=== PATIENT | male | born 1945 | race Caucasian/White ===

== ENCOUNTER 2018-03-18 05:29 | Inpatient (IN) ==
[2018-03-18] MEDS ORDERED: ceFAZolin 2 GM Premix Inj 2 GM/50 ML PIGGYBACK IV.SIG ONE (05:36)
[2018-03-18] MEDS ORDERED: Diphtheria/Tetanus/Pertussis Vaccine Inj 0.5 ML Syringe IM ONE (05:36)
[2018-03-18 05:56] LABS: Baso % (Auto) 0.2 % (0.0-2.0); Eos # (Auto) 0.1 th/mm3 (0.0-0.4); Eos % (Auto) 0.7 % (0.0-4.0); Hemoglobin 14.5 gm/dL (13.0-17.0); Lymph # (Auto) 0.9 th/mm3 (1.0-4.8); Lymph % (Auto) 11.4 % (9.0-44.0); Mean Corpuscular HGB Conc 32.2 % (32.0-36.0); Mean Corpuscular Hemoglobin 29.6 pg (27.0-34.0); Mean Corpuscular Volume 91.9 fL (80.0-100.0); Mean Platelet Volume 8.5 fL (7.0-11.0); Mono # (Auto) 0.6 th/mm3 (0.0-0.9); Mono % (Auto) 7.1 % (0.0-8.0); Neut # (Auto) 6.4 th/mm3 (1.8-7.7); Neut % (Auto) 80.6 % (16.0-70.0); Platelet Count 110 th/mm3 (150-450); Red Blood Count 4.89 mil/mm3 (4.50-5.90); Red Cell Distribution Width 14.2 % (11.6-17.2); White Blood Count 7.9 th/mm3 (4.0-11.0)
[2018-03-18 06:08] LABS: Activated Partial Thrombo Time 24.7 sec (24.3-30.1); INR 1.1 Ratio; Prothrombin Time 10.7 sec (9.8-11.6)
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
[2018-03-18] MEDS ORDERED: Naloxone Inj 0.4 MG/ML Vial IV.PUSH ONE (06:25)
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
[2018-03-18] MEDS ORDERED: Etomidate Inj 40 MG/20 ML Vial IV.PUSH ONE (06:44)
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
[2018-03-18] MEDS ORDERED: Propofol Inj 500 MG/50 ML Vial ONE (07:01)
[2018-03-18] MEDS ORDERED: Succinylcholine Inj 100 MG/5 ML Syringe IV.PUSH ONE (07:04)
[2018-03-18] MEDS ORDERED: Etomidate Inj 20 MG/10 ML Ampul IV.PUSH ONE ×2 (07:04→07:06)
[2018-03-18] MEDS ORDERED: Propofol 1000 mg/100 ml Inj 1,000 MG/100 ML BOTTLE IV.CONT PRN (07:05)
[2018-03-18 07:08] LABS: ABG Base Excess -2.2 mmol/L (-2-2); ABG PCO2 96 mmHg (38-42); ABG PO2 75 mmHg (61-120)
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
[2018-03-18] MEDS ORDERED: Morphine Sulfate Inj 2 MG/ML Vial IV.PUSH PRN (07:42)
[2018-03-18] MEDS ORDERED: Bisacodyl 10 MG Supp RECTAL PRN (07:42)
[2018-03-18] MEDS: Sod Chloride 0.9% Inj 1,000 ML IV.CONT SCH ×3 (08:51→21:39)
[2018-03-18] MEDS: Famotidine PF Inj 20 MG/2 ML Vial IV.PUSH SCH ×2 (09:00→21:37)
[2018-03-18] MEDS ORDERED: Acetaminophen 325 MG Tablet PO PRN (09:00)
[2018-03-18] MEDS: Enoxaparin Inj 40 MG/0.4 ML Syringe SQ SCH (09:01)
[2018-03-18] MEDS: Senna/Docusate Sodium 8.6/50 MG Tablet PO SCH ×2 (09:07→21:38)
[2018-03-18 10:38] LABS: ABG Base Excess -3.7 mmol/L (-2-2); ABG PCO2 48 mmHg (38-42); ABG PO2 147 mmHg (61-120)
[2018-03-18] MEDS: Propofol 1000 mg/100 ml Inj 1,000 MG/100 ML BOTTLE IV.CONT PRN (19:21)
[2018-03-19] MEDS ORDERED: Chlorhexidine Gluconate 2% 1 Pack (2 Cloths) TOPICAL PRN ×2 (04:00)
[2018-03-19] MEDS ORDERED: Chlorhexidine Gluconate 2% 1 Pack (2 Cloths) TOPICAL SCH (04:00)
[2018-03-19] MEDS: Chlorhexidine Gluconate 2% 1 Pack (2 Cloths) TOPICAL SCH (04:38)
[2018-03-19 05:03] LABS: Baso % (Auto) 0.1 % (0.0-2.0); Eos # (Auto) 0.1 th/mm3 (0.0-0.4); Eos % (Auto) 1.3 % (0.0-4.0); Hematocrit 41.4 % (39.0-51.0); Hemoglobin 13.3 gm/dL (13.0-17.0); Lymph # (Auto) 0.8 th/mm3 (1.0-4.8); Lymph % (Auto) 13.5 % (9.0-44.0); Mean Corpuscular HGB Conc 32.1 % (32.0-36.0); Mean Corpuscular Hemoglobin 29.3 pg (27.0-34.0); Mean Corpuscular Volume 91.3 fL (80.0-100.0); Mean Platelet Volume 8.5 fL (7.0-11.0); Mono # (Auto) 0.5 th/mm3 (0.0-0.9); Mono % (Auto) 8.3 % (0.0-8.0); Neut # (Auto) 4.5 th/mm3 (1.8-7.7); Neut % (Auto) 76.8 % (16.0-70.0); Platelet Count 94 th/mm3 (150-450); Red Blood Count 4.54 mil/mm3 (4.50-5.90); Red Cell Distribution Width 14.3 % (11.6-17.2); White Blood Count 5.9 th/mm3 (4.0-11.0)
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
[2018-03-19 05:22] LABS: Albumin 2.7 g/dL (3.4-5.0); Anion Gap 8 meq/L (5-15); Aspartate Aminotransferase 32 U/L (15-37); Blood Urea Nitrogen 21 mg/dL (7-18); Calcium 8.2 mg/dL (8.5-10.1); Carbon Dioxide 25.1 meq/L (21.0-32.0); Chloride 112 meq/L (98-107); Glomerular Filtration Rate 65 mL/min (>89); Glucose,Random 100 mg/dL (74-106); Potassium 4.9 meq/L (3.5-5.1); Sodium 145 meq/L (136-145)
[2018-03-19 05:23] LABS: Alanine Aminotransferase 23 U/L (12-78)
[2018-03-19 05:25] LABS: Alkaline Phosphatase 78 U/L (45-117); Total Protein 6.1 g/dL (6.4-8.2)
[2018-03-19 07:01] LABS: Platelet Morphology Normal (Normal)
[2018-03-19] MEDS: Enoxaparin Inj 40 MG/0.4 ML Syringe SQ SCH (09:00)
[2018-03-19] MEDS: Famotidine PF Inj 20 MG/2 ML Vial IV.PUSH SCH ×2 (09:00→20:33)
[2018-03-19] MEDS: Sod Chloride 0.9% Inj 1,000 ML IV.CONT SCH ×2 (09:55→21:53)
[2018-03-19] MEDS: Senna/Docusate Sodium 8.6/50 MG Tablet PO SCH ×2 (11:55→20:31)
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
[2018-03-20 05:44] LABS: Baso % (Auto) 0.1 % (0.0-2.0); Eos % (Auto) 0.4 % (0.0-4.0); Hematocrit 41.2 % (39.0-51.0); Hemoglobin 13.5 gm/dL (13.0-17.0); Lymph # (Auto) 0.5 th/mm3 (1.0-4.8); Lymph % (Auto) 6.9 % (9.0-44.0); Mean Corpuscular HGB Conc 32.9 % (32.0-36.0); Mean Corpuscular Hemoglobin 29.6 pg (27.0-34.0); Mean Corpuscular Volume 90.2 fL (80.0-100.0); Mean Platelet Volume 8.3 fL (7.0-11.0); Mono # (Auto) 0.5 th/mm3 (0.0-0.9); Neut # (Auto) 5.7 th/mm3 (1.8-7.7); Neut % (Auto) 85.6 % (16.0-70.0); Platelet Count 102 th/mm3 (150-450); Red Blood Count 4.57 mil/mm3 (4.50-5.90); Red Cell Distribution Width 13.9 % (11.6-17.2); White Blood Count 6.7 th/mm3 (4.0-11.0)
[2018-03-20 05:58] LABS: INR 1.1 Ratio; Prothrombin Time 10.8 sec (9.8-11.6)
[2018-03-20 06:08] LABS: Albumin 2.7 g/dL (3.4-5.0); Anion Gap 6 meq/L (5-15); Aspartate Aminotransferase 29 U/L (15-37); Blood Urea Nitrogen 14 mg/dL (7-18); Calcium 8.1 mg/dL (8.5-10.1); Carbon Dioxide 25.9 meq/L (21.0-32.0); Chloride 109 meq/L (98-107); Glomerular Filtration Rate Greater Than 89 mL/min (>89); Glucose,Random 137 mg/dL (74-106); Potassium 4.6 meq/L (3.5-5.1); Sodium 141 meq/L (136-145)
[2018-03-20 06:09] LABS: Alanine Aminotransferase 25 U/L (12-78); Phosphorus 2.7 mg/dL (2.5-4.9)
[2018-03-20 06:18] LABS: Alkaline Phosphatase 78 U/L (45-117); Free T4 (Free Thyroxine) 1.02 ng/dL (0.76-1.46); Thyroid Stimulating Hormone 0.713 uIU/mL (0.358-3.740); Total Protein 6.6 g/dL (6.4-8.2)
[2018-03-20] MEDS: Chlorhexidine Gluconate 2% 1 Pack (2 Cloths) TOPICAL SCH (07:00)
[2018-03-20] MEDS: Sod Chloride 0.9% Inj 1,000 ML IV.CONT SCH ×3 (09:01→20:42)
[2018-03-20] MEDS: Enoxaparin Inj 40 MG/0.4 ML Syringe SQ SCH (09:02)
[2018-03-20] MEDS: Senna/Docusate Sodium 8.6/50 MG Tablet PO SCH ×2 (09:02→21:22)
[2018-03-20] MEDS: Famotidine PF Inj 20 MG/2 ML Vial IV.PUSH SCH ×2 (09:02→21:22)
[2018-03-20] MEDS ORDERED: Dextrose 50% in Water 50 ML Vial IV.PUSH PRN (10:10)
[2018-03-20] MEDS ORDERED: MethylPREDNISolone Sod Succinate Inj 125 MG/2 ML Vial IV.PUSH ONE (10:12)
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
[2018-03-20] MEDS ORDERED: Midazolam Inj 5 MG/ML 1 ML Vial ONE (10:58)
[2018-03-20] MEDS ORDERED: Etomidate Inj 40 MG/20 ML Vial IV.PUSH ONE (10:58)
[2018-03-20 11:27] LABS: ABG Base Excess 0.5 mmol/L (-2-2); ABG PCO2 82 mmHg (38-42); ABG PO2 66 mmHg (61-120)
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
[2018-03-20] MEDS: Propofol 1000 mg/100 ml Inj 1,000 MG/100 ML BOTTLE IV.CONT PRN ×2 (11:30→20:44)
[2018-03-20] MEDS ORDERED: Etomidate Inj 20 MG/10 ML Ampul IV.PUSH ONE (11:45)
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
--- NOTE | 2018-03-20 12:21 | XR ---
EXAM DATE: 03/20/2018 12:00 AM EDT AGE/SEX: 72 years / Male INDICATIONS: Evaluate for hypoxemia. CLINICAL DATA: This is the patient's subsequent encounter. Patient reports that signs and symptoms h ave been present for 4 - 6 days and indicates a pain score of Nonresponsive. MEDICAL/SURGICAL HISTORY: Non-responsive. Non-responsive. COMPARISON: [facility], CHEST 1V SINGLE AP, 03/18/2018. . FINDINGS: A single AP view of the chest demonstrates an endotracheal tube with the tip 4 cm from the jj. Na sogastric tube courses off the inferior margin of the film. The patient is obliqued towards the left. Bibasilar pulmonary consolidations more pronounced from the prior exam. No discernible effusions. He art is at the upper limits of normal in terms of size. CONCLUSION: Worsening bibasilar consolidations. Electronically signed by: Ajay Loya MD 03/20/2018 12:19 PM EDT
[2018-03-20 12:24] LABS: ABG Base Excess 0.8 mmol/L (-2-2); ABG PCO2 62 mmHg (38-42); ABG PO2 158 mmHg (61-120)
[2018-03-20] MEDS: Insulin NovoLOG Aspart Correctional Sugar Inj SQ SCH ×3 (13:39→21:22)
[2018-03-20] MEDS: Tiotropium Bromide 18 MCG/ACT Inhaler INH SCH (13:44)
[2018-03-20] MEDS: Piperacil/Tazo 3.375 GM Premix 50 ML IV.SIG SCH ×2 (15:18→20:45)
[2018-03-20] MEDS: MethylPREDNISolone Sod Succinate Inj 125 MG/2 ML Vial IV.PUSH SCH ×2 (18:09→22:35)
[2018-03-20] MEDS: guaiFENesin 600 MG ER Tablet PO SCH (21:14)
[2018-03-20] MEDS: Budesonide-Formoterol 160/4.5 MCG 6 GM Inhaler INH SCH (21:15)
[2018-03-21] MEDS: Piperacil/Tazo 3.375 GM Premix 50 ML IV.SIG SCH ×4 (02:10→20:34)
[2018-03-21] MEDS: Insulin NovoLOG Aspart Correctional Sugar Inj SQ SCH ×4 (03:21→17:00)
[2018-03-21] MEDS: Propofol 1000 mg/100 ml Inj 1,000 MG/100 ML BOTTLE IV.CONT PRN ×5 (04:10→22:15)
[2018-03-21] MEDS: Chlorhexidine Gluconate 2% 1 Pack (2 Cloths) TOPICAL SCH (04:36)
[2018-03-21] MEDS: MethylPREDNISolone Sod Succinate Inj 125 MG/2 ML Vial IV.PUSH SCH ×4 (04:42→22:16)
[2018-03-21 07:07] LABS: Baso % (Auto) 0.1 % (0.0-2.0); Hematocrit 41.6 % (39.0-51.0); Hemoglobin 13.7 gm/dL (13.0-17.0); Lymph # (Auto) 0.2 th/mm3 (1.0-4.8); Lymph % (Auto) 4.2 % (9.0-44.0); Mean Corpuscular HGB Conc 32.9 % (32.0-36.0); Mean Corpuscular Hemoglobin 29.6 pg (27.0-34.0); Mean Corpuscular Volume 89.8 fL (80.0-100.0); Mean Platelet Volume 8.6 fL (7.0-11.0); Mono # (Auto) 0.1 th/mm3 (0.0-0.9); Mono % (Auto) 2.4 % (0.0-8.0); Neut # (Auto) 5.1 th/mm3 (1.8-7.7); Neut % (Auto) 93.3 % (16.0-70.0); Platelet Count 114 th/mm3 (150-450); Red Blood Count 4.63 mil/mm3 (4.50-5.90); Red Cell Distribution Width 13.9 % (11.6-17.2); White Blood Count 5.5 th/mm3 (4.0-11.0)
[2018-03-21 07:29] LABS: Alanine Aminotransferase 21 U/L (12-78); Phosphorus 2.2 mg/dL (2.5-4.9)
[2018-03-21 07:30] LABS: Albumin 2.4 g/dL (3.4-5.0); Anion Gap 7 meq/L (5-15); Aspartate Aminotransferase 26 U/L (15-37); Blood Urea Nitrogen 24 mg/dL (7-18); Calcium 8.4 mg/dL (8.5-10.1); Carbon Dioxide 24.9 meq/L (21.0-32.0); Chloride 110 meq/L (98-107); Glomerular Filtration Rate 71 mL/min (>89); Glucose,Random 203 mg/dL (74-106); Magnesium 2.2 mg/dL (1.5-2.5); Sodium 142 meq/L (136-145)
[2018-03-21 07:31] LABS: Alkaline Phosphatase 67 U/L (45-117); Total Protein 6.4 g/dL (6.4-8.2)
[2018-03-21 07:32] LABS: Potassium 4.9 meq/L (3.5-5.1)
[2018-03-21 08:10] LABS: Platelet Morphology Normal (Normal)
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
[2018-03-21] MEDS: guaiFENesin 600 MG ER Tablet PO SCH ×3 (09:21→20:35)
[2018-03-21] MEDS: Enoxaparin Inj 40 MG/0.4 ML Syringe SQ SCH (09:21)
[2018-03-21] MEDS: Senna/Docusate Sodium 8.6/50 MG Tablet PO SCH ×2 (09:22→20:33)
[2018-03-21] MEDS: Sod Chloride 0.9% Inj 1,000 ML IV.CONT SCH ×2 (09:23→20:22)
[2018-03-21] MEDS: Budesonide-Formoterol 160/4.5 MCG 6 GM Inhaler INH SCH ×2 (09:23→20:35)
[2018-03-21] MEDS: Tiotropium Bromide 18 MCG/ACT Inhaler INH SCH (09:23)
[2018-03-21] MEDS: Famotidine PF Inj 20 MG/2 ML Vial IV.PUSH SCH ×2 (09:25→20:33)
[2018-03-21] MEDS ORDERED: Sod Chloride 0.9% Inj 1,000 ML IV.SIG SCH (09:30)
[2018-03-21] MEDS ORDERED: Dextrose 50% in Water 50 ML Vial IV.PUSH PRN (09:33)
[2018-03-21] MEDS: Beneprotein Powder Packet G-TUBE SCH ×2 (12:03→17:00)
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
[2018-03-21 17:52] LABS: Bilirubin,Urine Negative (Negative); Clarity,Urine Clear (Clear); Color,Urine Yellow (Yellw/Straw); Glucose,Urine (UA) Negative (Negative); Leukocyte Esterase,Urine Trace (Negative); Nitrite,Urine Negative (Negative)
[2018-03-22] MEDS: Insulin NovoLOG Aspart Correctional Sugar Inj SQ SCH ×5 (00:34→23:32)
[2018-03-22] MEDS: Piperacil/Tazo 3.375 GM Premix 50 ML IV.SIG SCH ×4 (02:00→20:12)
[2018-03-22] MEDS: Propofol 1000 mg/100 ml Inj 1,000 MG/100 ML BOTTLE IV.CONT PRN ×3 (03:55→18:59)
[2018-03-22 04:18] LABS: Hematocrit 38.8 % (39.0-51.0); Hemoglobin 12.6 gm/dL (13.0-17.0); Mean Corpuscular HGB Conc 32.5 % (32.0-36.0); Mean Corpuscular Hemoglobin 29.2 pg (27.0-34.0); Mean Corpuscular Volume 89.9 fL (80.0-100.0); Mean Platelet Volume 8.2 fL (7.0-11.0); Platelet Count 123 th/mm3 (150-450); Red Blood Count 4.31 mil/mm3 (4.50-5.90); White Blood Count 6.6 th/mm3 (4.0-11.0)
[2018-03-22] MEDS: Chlorhexidine Gluconate 2% 1 Pack (2 Cloths) TOPICAL SCH (04:24)
[2018-03-22] MEDS: MethylPREDNISolone Sod Succinate Inj 125 MG/2 ML Vial IV.PUSH SCH ×4 (04:25→23:32)
--- NOTE | 2018-03-22 04:28 | XR ---
EXAM DATE: 03/22/2018 6:00 AM EDT AGE/SEX: 72 years / Male INDICATIONS: Respiratory disease. CLINICAL DATA: This is the patient's subsequent encounter. Patient reports that signs and symptoms h ave been present for 4 - 6 days and indicates a pain score of Nonresponsive. MEDICAL/SURGICAL HISTORY: Non-responsive. Non-responsive. COMPARISON: [facility], CHEST 1V SINGLE AP, 03/20/2018. . FINDINGS: Endotracheal tube in good position. NG enters stomach. Basilar airspace disease similar to March 20 . No pneumothorax. Small effusions. CONCLUSION: Support apparatus unchanged. Stable basilar airspace disease with small effusions. Electronically signed by: Oniel Schaeffer MD 03/22/2018 4:26 AM EDT
[2018-03-22 04:34] LABS: Albumin 1.6 g/dL (3.4-5.0); Calcium 7.1 mg/dL (8.5-10.1); Carbon Dioxide 27.3 meq/L (21.0-32.0); Total Protein 4.1 g/dL (6.4-8.2)
[2018-03-22 04:35] LABS: Potassium 4.6 meq/L (3.5-5.1)
[2018-03-22] MEDS: Sod Chloride 0.9% Inj 1,000 ML IV.CONT SCH ×2 (05:12→08:04)
[2018-03-22] MEDS: Senna/Docusate Sodium 8.6/50 MG Tablet PO SCH ×2 (08:02→20:13)
[2018-03-22] MEDS: Enoxaparin Inj 40 MG/0.4 ML Syringe SQ SCH (08:05)
[2018-03-22] MEDS: guaiFENesin 600 MG ER Tablet PO SCH (08:06)
[2018-03-22] MEDS: Beneprotein Powder Packet G-TUBE SCH ×3 (08:06→19:00)
[2018-03-22] MEDS: Famotidine PF Inj 20 MG/2 ML Vial IV.PUSH SCH (08:07)
--- NOTE | 2018-03-22 09:49 | P.PNNP ---
Subjective Interval history: On ventilator with sedation. Urinary output has increased overnight. Creatinine stable at 0.90. <Lauren Chanel - Last Filed: 03/22/18 09:46> Physical Exam Vital signs: Vital Signs 03/21/18 11:48 03/21/18 12:00 03/21/18 15:35 Temperature 97.8 F Pulse Rate 87 74 Respiratory Rate 18 18 18 Blood Pressure 135/83 Pulse Oximetry 99 96 97 03/21/18 15:38 03/21/18 16:00 03/21/18 20:00 Temperature 97.8 F 98 F Pulse Rate 58 L 65 64 Respiratory Rate 18 18 18 Blood Pressure 135/70 139/63 Pulse Oximetry 97 98 03/21/18 21:23 03/21/18 22:23 03/22/18 00:00 Temperature 98.2 F Pulse Rate 75 52 L Respiratory Rate 18 18 18 Blood Pressure 115/56 L Pulse Oximetry 97 98 03/22/18 00:20 03/22/18 04:00 03/22/18 04:27 Temperature 98.5 F Pulse Rate 63 72 67 Respiratory Rate 18 21 18 Blood Pressure 115/55 L Pulse Oximetry 98 97 98 03/22/18 07:33 Temperature Pulse Rate 56 L Respiratory Rate 18 Blood Pressure Pulse Oximetry 97 Intake & Output 03/21/18 03/22/18 03/22/18 18:59 06:59 18:59 Intake Total 1550 / 1550 1652 / 1652 200 / 200 Output Total 475 / 475 650 / 650 Balance 1075 / 1075 1002 / 1002 200 / 200 Weight 116.1 kg Intake: IV 1550 / 1550 1300 / 1300 200 / 200 Diprivan 1000 mg/100 ml Inj 1, 300 / 300 200 / 200 000 mg In 100 ml @ 5 MCG/KG/MIN 3.402 mls/hr IV.CONT TITRATE PRN Rx#:[id number] NS Inj 1,000 ML @ 84 mls/hr IV. 1000 / 1000 200 / 200 CONT .[id number] [facility] Rx#:[id number] Levaquin 750 mg Premix Inj 150 150 / 150 ML @ 100 mls/hr IV.SIG Q24H [facility] Rx#:[id number] Zosyn 3.375 GM Premix 50 ML @ 100 / 100 100 / 100 100 mls/hr IV.SIG Q6H [facility] Rx#: [id number] NS Inj 1,000 ML @ Wide Open IV. 1000 / 1000 SIG BOLUS [facility] Rx#:[id number] Tube Feeding 202 / 202 Tube Irrigant 150 / 150 Output: Urine Amount (Catheter) 475 / 475 650 / 650 Indwelling Urethral Catheter 475 / 475 650 / 650 Other: Date of Last Bowel Movement 03/19/18 Narrative: GENERAL: Sleeping. Orally intubated on sedation. SKIN: Warm and dry. NECK: Supple, trachea midline. No JVD. CARDIOVASCULAR: Regular rate and rhythm without murmurs, gallops, or rubs. RESPIRATORY: Breath sounds equal bilaterally. No accessory muscle use. GASTROINTESTINAL: Abdomen soft, non-tender, nondistended. OG tube GENITOURINARY: Indwelling Beckford catheter. MUSCULOSKELETAL: No cyanosis. Generalized edema BACK: Nontender without obvious deformity. No CVA tenderness. - Urinary Catheter Management Indwelling Urethral Catheter Cath placed during this visit: yes, but has since been removed by the nurse Reason for continuing: Hourly intake/output Insertion date: 03/21/18 Insertion time: 10:30 Removal date: 03/19/18 Removal time: 17:00 Condom Cath placed during this visit: yes Reason for continuing: Not indwelling catheter Insertion date: 03/20/18 Insertion time: 11:10 Straight Cath placed during this visit: yes Reason for continuing: Not indwelling catheter Insertion date: 03/21/18 Insertion time: 02:00 <Lauren Chanel - Last Filed: 03/22/18 09:46> Vital signs: Vital Signs 03/25/18 20:00 03/25/18 21:26 03/26/18 00:00 Temperature 98.5 F 98.5 F Pulse Rate 72 88 72 Respiratory Rate 23 35 H 18 Blood Pressure 140/67 166/81 H Pulse Oximetry 95 99 03/26/18 00:10 03/26/18 00:29 03/26/18 04:00 Temperature 98.6 F Pulse Rate 86 82 Respiratory Rate 20 20 Blood Pressure 154/76 H Pulse Oximetry 97 96 03/26/18 05:47 03/26/18 08:00 03/26/18 08:59 Temperature 98.1 F Pulse Rate 82 80 91 H Respiratory Rate 20 28 H 17 Blood Pressure 140/80 Pulse Oximetry 94 L 95 03/26/18 12:00 03/26/18 12:14 03/26/18 15:57 Temperature 98.2 F Pulse Rate 93 H 85 87 Respiratory Rate 27 H 17 17 Blood Pressure 127/71 Pulse Oximetry 95 Intake & Output 03/25/18 03/26/18 03/26/18 18:59 06:59 18:59 Intake Total 960 / 960 1260 / 1260 Output Total 750 / 750 1200 / 1200 Balance 210 / 210 60 / 60 Weight 117.1 kg Intake: IV 300 / 300 Levaquin 750 mg Premix Inj 150 150 / 150 ML @ 100 mls/hr IV.SIG Q24H [facility] Rx#:[id number] Zosyn 3.375 GM Premix 50 ML @ 150 / 150 100 mls/hr IV.SIG Q6H [facility] Rx#: [id number] Oral 960 / 960 960 / 960 Output: Urine 750 / 750 1200 / 1200 Other: Date of Last Bowel Movement 03/19/18 03/19/18 03/26/18 - Urinary Catheter Management Indwelling Urethral Catheter Cath placed during this visit: no Condom Cath placed during this visit: no Straight Cath placed during this visit: no <Payal Schulz - Last Filed: 03/26/18 17:25> Assessment and Plan - Assessment (1) Oliguria Code(s): R34 - Anuria and oliguria Status: Acute Plan: Urinary output improved overnight Abdominal ultrasound with no mass or hydronephrosis. Simple cyst along the lower pole measures 5.5 x 4.1 cm on right kidney. Bladder not visualized and likely empty UA with mild proteinuria. Plan Maintain indwelling Beckford catheter Strict I+o Continue IVF Has some generalized edema, can give Lasix PRN Will follow urinary output and bmp (2) Acute hypercapnic respiratory failure Code(s): J96.02 - Acute respiratory failure with hypercapnia Status: Acute Plan: intubated, managed per CC On antibiotics. <Lauren Chanel - Last Filed: 03/22/18 09:46> - Assessment (1) Oliguria Code(s): R34 - Anuria and oliguria Status: Acute Plan: Patient seen and examined, agree with above. Creatinine remain normal. Urine out put is adequate, can give Lasix PRN. (2) Acute hypercapnic respiratory failure Code(s): J96.02 - Acute respiratory failure with hypercapnia Status: Deleted <Payal Schulz - Last Filed: 03/26/18 17:25>
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
[2018-03-22] MEDS ORDERED: Mineral Oil 55% Emulsion 480 ML PO ONE (10:07)
[2018-03-22] MEDS ORDERED: Polyethylene Glycol 3350 17 GM Packet PO ONE (10:07)
[2018-03-22] MEDS ORDERED: Mineral Oil 55% Emulsion 30 ML UDC PO SCH (10:15)
[2018-03-22] MEDS: Tiotropium Bromide 18 MCG/ACT Inhaler INH SCH (11:55)
[2018-03-22] MEDS: Budesonide-Formoterol 160/4.5 MCG 6 GM Inhaler INH SCH (11:55)
[2018-03-22] MEDS: Famotidine 20 MG Tablet PO SCH (20:12)
[2018-03-22] MEDS: Carboxymethylcellulose 0.5% Opth Drops 15 ML Bottle EACH EYE SCH (20:13)
[2018-03-23] MEDS: Propofol 1000 mg/100 ml Inj 1,000 MG/100 ML BOTTLE IV.CONT PRN ×2 (00:01→05:56)
[2018-03-23] MEDS: Piperacil/Tazo 3.375 GM Premix 50 ML IV.SIG SCH ×4 (01:26→20:23)
[2018-03-23 04:07] LABS: Baso % (Auto) 0.1 % (0.0-2.0); Hematocrit 39.6 % (39.0-51.0); Hemoglobin 12.9 gm/dL (13.0-17.0); Lymph # (Auto) 0.1 th/mm3 (1.0-4.8); Lymph % (Auto) 2.3 % (9.0-44.0); Mean Corpuscular HGB Conc 32.7 % (32.0-36.0); Mean Corpuscular Hemoglobin 29.3 pg (27.0-34.0); Mean Corpuscular Volume 89.7 fL (80.0-100.0); Mean Platelet Volume 8.5 fL (7.0-11.0); Mono # (Auto) 0.2 th/mm3 (0.0-0.9); Neut # (Auto) 5.5 th/mm3 (1.8-7.7); Neut % (Auto) 94.6 % (16.0-70.0); Platelet Count 125 th/mm3 (150-450); Red Blood Count 4.41 mil/mm3 (4.50-5.90); Red Cell Distribution Width 14.2 % (11.6-17.2); White Blood Count 5.8 th/mm3 (4.0-11.0)
[2018-03-23 04:33] LABS: Albumin 2.1 g/dL (3.4-5.0); Anion Gap 7 meq/L (5-15); Aspartate Aminotransferase 14 U/L (15-37); Blood Urea Nitrogen 31 mg/dL (7-18); Calcium 7.7 mg/dL (8.5-10.1); Carbon Dioxide 28.3 meq/L (21.0-32.0); Chloride 109 meq/L (98-107); Glomerular Filtration Rate 75 mL/min (>89); Magnesium 2.7 mg/dL (1.5-2.5); Potassium 4.8 meq/L (3.5-5.1); Sodium 144 meq/L (136-145)
[2018-03-23 04:37] LABS: Alanine Aminotransferase 23 U/L (12-78); Alkaline Phosphatase 61 U/L (45-117); Glucose,Random 231 mg/dL (74-106); Phosphorus 2.8 mg/dL (2.5-4.9); Total Protein 5.5 g/dL (6.4-8.2)
[2018-03-23] MEDS: Chlorhexidine Gluconate 2% 1 Pack (2 Cloths) TOPICAL SCH (04:54)
[2018-03-23] MEDS: MethylPREDNISolone Sod Succinate Inj 125 MG/2 ML Vial IV.PUSH SCH ×3 (04:55→17:05)
--- NOTE | 2018-03-23 05:42 | XR ---
EXAM DATE: 03/23/2018 6:00 AM EDT AGE/SEX: 72 years / Male INDICATIONS: Respiratory distress. CLINICAL DATA: This is the patient's subsequent encounter. Patient reports that signs and symptoms h ave been present for 3 days and indicates a pain score of Nonresponsive. MEDICAL/SURGICAL HISTORY: Chronic obstructive pulmonary disease. Diabetes mellitus type II. No ne. COMPARISON: [facility], CHEST 1V SINGLE AP, 03/22/2018. . FINDINGS: Endotracheal tube in good position. NG enters stomach. Basilar airspace disease and pleural effusions similar to March 22. No pneumothorax. CONCLUSION: Support apparatus in good position. Basilar airspace disease and small pleural effusions. Electronically signed by: Oniel Schaeffer MD 03/23/2018 5:41 AM EDT
[2018-03-23] MEDS: Insulin NovoLOG Aspart Correctional Sugar Inj SQ SCH ×3 (05:54→17:38)
[2018-03-23] MEDS: Famotidine 20 MG Tablet PO SCH ×2 (08:41→20:24)
[2018-03-23] MEDS: Senna/Docusate Sodium 8.6/50 MG Tablet PO SCH ×2 (08:41→20:24)
[2018-03-23] MEDS: Enoxaparin Inj 40 MG/0.4 ML Syringe SQ SCH (08:41)
[2018-03-23] MEDS: Beneprotein Powder Packet G-TUBE SCH ×3 (08:42→17:38)
[2018-03-23] MEDS: Budesonide-Formoterol 160/4.5 MCG 6 GM Inhaler INH SCH ×3 (08:42→21:35)
[2018-03-23] MEDS: Tiotropium Bromide 18 MCG/ACT Inhaler INH SCH (08:43)
[2018-03-23] MEDS: Carboxymethylcellulose 0.5% Opth Drops 15 ML Bottle EACH EYE SCH ×2 (08:43→20:24)
[2018-03-23 11:33] LABS: ABG Base Excess 2.9 mmol/L (-2-2); ABG PCO2 54 mmHg (38-42); ABG PO2 105 mmHg (61-120)
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
[2018-03-24] MEDS: Melatonin 5 MG Tablet PO SCH ×2 (01:17→21:58)
[2018-03-24] MEDS: MethylPREDNISolone Sod Succinate Inj 125 MG/2 ML Vial IV.PUSH SCH ×3 (01:17→11:55)
[2018-03-24] MEDS: Piperacil/Tazo 3.375 GM Premix 50 ML IV.SIG SCH ×4 (01:18→22:08)
[2018-03-24] MEDS: Insulin NovoLOG Aspart Correctional Sugar Inj SQ SCH ×4 (01:18→20:00)
[2018-03-24 04:23] LABS: Hematocrit 38.8 % (39.0-51.0); Hemoglobin 12.9 gm/dL (13.0-17.0); Mean Corpuscular HGB Conc 33.1 % (32.0-36.0); Mean Corpuscular Hemoglobin 29.7 pg (27.0-34.0); Mean Corpuscular Volume 89.6 fL (80.0-100.0); Mean Platelet Volume 8.3 fL (7.0-11.0); Platelet Count 121 th/mm3 (150-450); Red Blood Count 4.34 mil/mm3 (4.50-5.90); Red Cell Distribution Width 14.1 % (11.6-17.2); White Blood Count 5.3 th/mm3 (4.0-11.0)
[2018-03-24 04:46] LABS: Carbon Dioxide 30.2 meq/L (21.0-32.0); Magnesium 2.7 mg/dL (1.5-2.5); Potassium 4.6 meq/L (3.5-5.1)
[2018-03-24 04:47] LABS: Phosphorus 2.6 mg/dL (2.5-4.9)
[2018-03-24] MEDS: Beneprotein Powder Packet G-TUBE SCH ×3 (09:16→20:00)
[2018-03-24] MEDS: Famotidine 20 MG Tablet PO SCH ×2 (09:29→21:58)
[2018-03-24] MEDS: Enoxaparin Inj 40 MG/0.4 ML Syringe SQ SCH (09:29)
[2018-03-24] MEDS: Senna/Docusate Sodium 8.6/50 MG Tablet PO SCH ×2 (09:30→21:58)
[2018-03-24] MEDS: Tiotropium Bromide 18 MCG/ACT Inhaler INH SCH (09:36)
[2018-03-24] MEDS: Budesonide-Formoterol 160/4.5 MCG 6 GM Inhaler INH SCH ×2 (09:36→21:59)
[2018-03-24] MEDS: Carboxymethylcellulose 0.5% Opth Drops 15 ML Bottle EACH EYE SCH ×2 (09:36→21:58)
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
--- NOTE | 2018-03-24 19:23 | XR ---
EXAM DATE: 03/24/2018 12:00 AM EDT AGE/SEX: 72 years / Male INDICATIONS: . Pneumonia CLINICAL DATA: This is the patient's subsequent encounter. Patient reports that signs and symptoms h ave been present for 4 - 6 days and indicates a pain score of 0/10. MEDICAL/SURGICAL HISTORY: . Chronic obstructive pulmonary disease. Diabetes mellitus type II None. COMPARISON: [facility], CHEST 1V SINGLE AP, 03/23/2018. . FINDINGS: Patient has been extubated. Nasogastric tube has been removed. Lung volumes are reasonably well-maint ained. Minimal parenchymal changes persist in the left base. Heart remains minimally enlarged. CONCLUSION: Minimal parenchymal changes persisting left base following extubation. Electronically signed by: Ignacio Heard MD 03/24/2018 7:22 PM EDT
[2018-03-25] MEDS: MethylPREDNISolone Sod Succinate Inj 125 MG/2 ML Vial IV.PUSH SCH ×2 (00:46→12:42)
[2018-03-25] MEDS: Insulin NovoLOG Aspart Correctional Sugar Inj SQ SCH ×4 (00:47→17:55)
[2018-03-25] MEDS: Piperacil/Tazo 3.375 GM Premix 50 ML IV.SIG SCH ×4 (01:26→20:01)
[2018-03-25 06:36] LABS: Hematocrit 39.4 % (39.0-51.0); Hemoglobin 12.8 gm/dL (13.0-17.0); Mean Corpuscular HGB Conc 32.4 % (32.0-36.0); Mean Corpuscular Hemoglobin 29.4 pg (27.0-34.0); Mean Corpuscular Volume 90.5 fL (80.0-100.0); Mean Platelet Volume 8.5 fL (7.0-11.0); Platelet Count 115 th/mm3 (150-450); Red Blood Count 4.35 mil/mm3 (4.50-5.90); Red Cell Distribution Width 14.2 % (11.6-17.2); White Blood Count 5.3 th/mm3 (4.0-11.0)
[2018-03-25 07:00] LABS: Calcium 8.3 mg/dL (8.5-10.1); Carbon Dioxide 28.5 meq/L (21.0-32.0); Magnesium 2.6 mg/dL (1.5-2.5); Phosphorus 3.3 mg/dL (2.5-4.9); Potassium 4.5 meq/L (3.5-5.1)
[2018-03-25] MEDS: Senna/Docusate Sodium 8.6/50 MG Tablet PO SCH ×2 (10:08→20:02)
[2018-03-25] MEDS: Beneprotein Powder Packet G-TUBE SCH ×3 (10:08→17:48)
[2018-03-25] MEDS: Famotidine 20 MG Tablet PO SCH ×2 (10:08→20:02)
[2018-03-25] MEDS: Enoxaparin Inj 40 MG/0.4 ML Syringe SQ SCH (10:08)
[2018-03-25] MEDS: Tiotropium Bromide 18 MCG/ACT Inhaler INH SCH (10:09)
[2018-03-25] MEDS: Budesonide-Formoterol 160/4.5 MCG 6 GM Inhaler INH SCH ×2 (10:09→20:02)
[2018-03-25] MEDS: Carboxymethylcellulose 0.5% Opth Drops 15 ML Bottle EACH EYE SCH ×2 (10:10→20:02)
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
[2018-03-25] MEDS: Melatonin 5 MG Tablet PO SCH (20:02)
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
[2018-03-26] MEDS: Insulin NovoLOG Aspart Correctional Sugar Inj SQ SCH ×3 (00:11→12:56)
[2018-03-26] MEDS: MethylPREDNISolone Sod Succinate Inj 125 MG/2 ML Vial IV.PUSH SCH ×2 (00:11→12:56)
[2018-03-26] MEDS: Piperacil/Tazo 3.375 GM Premix 50 ML IV.SIG SCH ×2 (02:54→10:53)
[2018-03-26 09:00] VITALS: RESP 17; O2SAT 95
[2018-03-26] MEDS: Enoxaparin Inj 40 MG/0.4 ML Syringe SQ SCH (10:53)
[2018-03-26] MEDS: Beneprotein Powder Packet G-TUBE SCH ×2 (10:53→12:57)
[2018-03-26] MEDS: Senna/Docusate Sodium 8.6/50 MG Tablet PO SCH (10:54)
[2018-03-26] MEDS: Famotidine 20 MG Tablet PO SCH (10:54)
[2018-03-26] MEDS: Tiotropium Bromide 18 MCG/ACT Inhaler INH SCH (11:03)
[2018-03-26] MEDS: Carboxymethylcellulose 0.5% Opth Drops 15 ML Bottle EACH EYE SCH (11:03)
[2018-03-26] MEDS: Budesonide-Formoterol 160/4.5 MCG 6 GM Inhaler INH SCH (11:03)
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
[2018-03-26] MEDS ORDERED: predniSONE 20 MG Tablet PO SCH (14:45)
[2018-03-26 15:58] VITALS: PULSE 87
[2018-03-26 16:07] VITALS: BP 127/71; TEMP 98.2
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
[2018-03-27] MEDS ORDERED: levoFLOXacin 750 MG Tablet PO SCH (09:00)
== END 2018-03-26 16:43 ==
LOC: NEPI 05:29 → EDBD 07:34 → NEDA 07:34 → N03 09:40
PROVIDERS: ADMIT Internal Medicine; ATTEND Internal Medicine